=== PATIENT | female | born 1990 | race Two or more races ===

== ENCOUNTER 2023-08-02 16:51 | Outpatient (CLI) | payer OTHER | END 2023-08-02 16:53 | disposition home or self-care (01) | LOC: PRENATAL 16:51 | PROVIDERS: ATTEND Obstetrics & Gynecology Maternal & Fetal Medicine | DX: O35.9XX0 Maternal care for (suspected) fetal abnormality and damage, unspecified, not applicable or unspecified (principal); O35.3XX0 Maternal care for (suspected) damage to fetus from viral disease in mother, not applicable or unspecified; O44.00 Complete placenta previa NOS or without hemorrhage, unspecified trimester; Z3A.19 19 weeks gestation of pregnancy ==

== ENCOUNTER 2023-12-12 07:29 | Inpatient (IN) | payer OTHER ==
[~2023-12-12] VITALS: Ht 170.2 cm; Wt 77.6 kg
[2023-12-12 09:05] LABS: HEMATOCRIT 28.1 % (36.0-45.00); HEMOGLOBIN 9.8 g/dL (12.0-15.00); MEAN CELL VOLUME 86.5 fL (80.00-100.00); MEAN CORPUSCULAR HEMOGLOBIN 30.1 pg (27.00-32.0); MEAN CORPUSCULAR HGB CONC 34.8 g/dl (32.0-36.0); PLATELET COUNT 213 K/uL (150-450); RED BLOOD COUNT 3.25 M/uL (4.00-6.00); RED CELL DISTRIBUTION WIDTH 15.2 % (11.5-14.5)
[2023-12-12 09:12] LABS: URINE APPEARANCE Clear; URINE BILIRRUBIN Negative (NEGATIVE); URINE BLOOD Small; URINE COLOR Dark Yellow; URINE GLUCOSE Negative (NEGATIVE); URINE LEUKOCYTE Small; URINE NITRATE Negative; URINE PROTEIN Trace (NEGATIVE)
[2023-12-12 09:16] LABS: URINE EPITHELIAL CELLS 16.9 uL (0.0-38.8); URINE RBC 29.9 uL (0.0-20.8); URINE WBC 25.3 uL (0.0-23.2)
[2023-12-12] MEDS ORDERED: ALOE VERA25 MG PO (09:52)
[2023-12-12 09:59] LABS: INR 0.98; PARTIAL THROMBOPLASTIN TIME 26.7 SECONDS (22.0-34.0); PROTHROMBIN TIME 10.3 SECONDS (9.0-11.5)
[2023-12-12] MEDS ORDERED: OXYTOCIN 20 UNITS/500ML RL PIGGYBAG IV ONE (12:01)
[2023-12-12] MEDS ORDERED: OXYTOCIN 20 UNITS/500ML RL PIGGYBAG IV SCH (12:15)
[2023-12-12] MEDS ORDERED: ERYTHROMYCIN BASE 1 GM TUBE OP ONE ×2 (14:14→18:15)
[2023-12-12] MEDS ORDERED: CHLORHEXIDINE GLUCONATE 120 ML BOTTLE TOP ONE ×2 (14:15→18:15)
[2023-12-12] MEDS ORDERED: OXYTOCIN 20 UNITS/1000ML RL PIGGYBAG IV ONE (14:15)
[2023-12-12] MEDS ORDERED: LIDOCAINE HCL 1% 10ML VIAL ONE (16:42)
[2023-12-12] MEDS ORDERED: METHYLERGONOVINE MALEATE 0.2 MG/ML AMPUL ONE (17:12)
[2023-12-12] MEDS ORDERED: METHYLERGONOVINE MALEATE 0.2 MG/ML AMPUL IM STA (18:13)
[2023-12-12] MEDS ORDERED: OXYTOCIN 1,000 ML IV SCH ×2 (18:15→18:30)
[2023-12-12] MEDS ORDERED: ACETAMINOPHEN 500 MG GEL..CAP PO ONE (18:19)
[2023-12-12] MEDS ORDERED: CHLORHEXIDINE GLUCONATE 120 ML BOTTLE TOP SCH (18:30)
[2023-12-12] MEDS ORDERED: ERYTHROMYCIN BASE 1 GM TUBE OP SCH (18:30)
[2023-12-12] MEDS ORDERED: ACETAMINOPHEN 500 MG GEL..CAP PO PRN (18:30)
[2023-12-12 21:33] LABS: HEMATOCRIT 34.7 % (36.0-45.00); HEMOGLOBIN 11.7 g/dL (12.0-15.00); MEAN CELL VOLUME 84.5 fL (80.00-100.00); MEAN CORPUSCULAR HEMOGLOBIN 28.6 pg (27.00-32.0); MEAN CORPUSCULAR HGB CONC 33.9 g/dl (32.0-36.0); PLATELET COUNT 280 K/uL (150-450); RED CELL DISTRIBUTION WIDTH 14.9 % (11.5-14.5)
[2023-12-13] MEDS ORDERED: PNV,CALCIUM 72/IRON/FOLIC ACID 1 TAB TABLET PO SCH (09:00)
[2023-12-14 02:41] LABS: HEMATOCRIT 26.9 % (36.0-45.00); MEAN CELL VOLUME 85.7 fL (80.00-100.00); MEAN CORPUSCULAR HEMOGLOBIN 29.2 pg (27.00-32.0); PLATELET COUNT 239 K/uL (150-450); RED BLOOD COUNT 3.14 M/uL (4.00-6.00); RED CELL DISTRIBUTION WIDTH 15.2 % (11.5-14.5)
[2023-12-14 02:54] LABS: HEMOGLOBIN 9.2 g/dL (12.0-15.00)
== END 2023-12-14 16:14 | disposition home or self-care (01) | DRG 807 ==
LOC: LDR 07:29 → OB/GYN 19:22
PROVIDERS: ADMIT Obstetrics & Gynecology; ATTEND Obstetrics & Gynecology
PROC: 10E0XZZ Delivery of Products of Conception, External Approach (ICD-10-PCS; principal; 2023-12-12)
PROC: 4A1HXCZ Monitoring of Products of Conception, Cardiac Rate, External Approach (ICD-10-PCS; 2023-12-12)
DX: O80 Encounter for full-term uncomplicated delivery (principal); Z37.0 Single live birth; Z3A.39 39 weeks gestation of pregnancy; Z20.822 Contact with and (suspected) exposure to COVID-19